=== PATIENT | male | born 1995 | race Caucasian/White ===

== ENCOUNTER 2018-01-21 21:16 | Emergency (ER) | payer OTHER ==
[~2018-01-21] VITALS: Ht 175.3 cm; Wt 72.7 kg
[2018-01-21 21:23] VITALS: TEMP 39.4; Ht 175.3 cm; Wt 72.7 kg
[2018-01-21] MEDS ORDERED: HYDROCODONE/HOMATROPINE SYRUP 5MG/1.5MG 5ML UDP PO STA (21:49)
[2018-01-21] MEDS ORDERED: IBUPROFEN 800 MG TAB PO STA (21:49)
[2018-01-21] MEDS ORDERED: ACETAMINOPHEN 500 MG TAB PO STA (21:49)
[2018-01-21 22:49] LABS: INFLUENZA B ANTIGEN Neg for Influ B (NEG)
--- NOTE | 2018-01-21 22:53 | EMERGENCY ROOM VISIT NOTE ---
ED Visit Note First contact with patient: 21:31 CHIEF COMPLAINT: Fever, runny nose, cough, ear pain and headache 2 days HISTORY OF PRESENT ILLNESS: Patient is an otherwise healthy 22-year-old male who presents emergency department for evaluation of influenza-like symptoms that started 2 evenings ago. He states that he had been out of the theater with some friends and there were lots of people who were coughing, then his symptoms started later that evening with a dry sore throat. He woke up with a fever overnight. He notes cough productive of clear mucus, stuffy, runny nose, frontal headache, back pain, anorexia and difficulty sleeping. He has subjectively felt feverish but has not recorded his temperature with a thermometer. He states that his fever does improve after taking Advil liquid gels. He did not receive a flu shot this season. He denies any skin rashes, no posterior neck pain or stiffness. No vomiting or diarrhea. REVIEW OF SYSTEMS: Review of systems as per HPI. All other systems reviewed were negative. 10 systems reviewed. PMH: Electronic medical records are reviewed and summarized as above/below. See Problem List. SOCIAL HISTORY: Patient is a college student originally from [facility], who lives locally in an apartment with a roommate. Denies tobacco or alcohol use. PHYSICAL EXAM: Vital Signs: Reviewed Nurse's notes. Temperature 39.4C orally. MENTAL STATUS: Patient is an ill although nontoxic-appearing 22-year-old male who is awake and alert and in no acute distress. HEAD: Atraumatic, without temporal or scalp tenderness. EYES: PERRL, EOMI, no discharge or injection. EARS: Tympanic membranes intact, not inflamed, have normal contour. External canals clear. NOSE: Nares patent, turbinates edematous and boggy with clear rhinorrhea. MOUTH: Mucous membranes moist, no lesions, tongue and gums appear normal. THROAT: No pharyngeal injection, exudates, or tonsillar hypertrophy. Airway is patent. NECK: Supple, nontender, no lymphadenopathy. No nuchal rigidity. HEART: Regular rate and rhythm without murmurs, ectopy, gallops, or rubs. LUNGS: Clear to auscultation and breath sounds equal, no wheezes, rales, or rhonchi. SKIN: Normal. NEUROLOGICAL: Sensory and motor functions grossly intact. Normal gait. EMERGENCY DEPARTMENT COURSE: Patient was medicated with Hycodan 10 mL's orally, ibuprofen 600 mg and Tylenol 1 g orally. Rapid strep and influenza swab were obtained. Chest x-ray was performed. Rapid strep was negative, backup cultures are sent and are pending. Influenza swab was positive for influenza A. Chest x-ray was obtained and was unremarkable. The patient was reassessed, and made aware of the results of his laboratory and diagnostic imaging studies. Supportive care measures were discussed. Fever management with alternating Tylenol and ibuprofen was discussed. He was given Hycodan for cough. He was educated on the worrisome signs or symptoms for which he should seek reevaluation. At discharge, nursing staff failed to recheck his temperature although it is noted that his tachycardia has improved. Differential diagnoses includes URI, influenza, mononucleosis, strep versus viral pharyngitis, pneumonia, bronchitis, among others. His physical exam is not consistent with meningitis or encephalitis. Medication reconciliation: I attest that I have personally reviewed the patient' s current medication list. Blood pressure screening: Patient was found to have a slightly elevated blood pressure due to circumstances. I do not believe that the patient requires hypertension monitoring. CHEST 2 VIEWS ROUTINE CLINICAL HISTORY: COUGH AND FEVER COMPARISON STUDY: No previous studies for comparison. FINDINGS: The cardiac and mediastinal contours are normal. There is no evidence of focal pulmonary consolidation. There is no evidence of failure. No pleural effusions are visualized.[ There is an azygos fissure. There are nonspecific increased markings within the right apex medially. IMPRESSION: 1. Nonspecific increased markings in the right apex medially. 2. No evidence of lobar consolidation. Current/Historical Medications Scheduled PRN Hydrocodone W/ Homatropine (Hycodan 5/1.5MG 5 Ml), 10 ML PO Q4H PRN for Cough Allergies Coded Allergies: No Known Allergies (Unverified , 01/21/18) Vital Signs Date Time Temp Pulse Resp B/P (MAP) Pulse Ox O2 Delivery O2 Flow Rate FiO2 01/21/18 23:14 88 20 140/88 99 01/21/18 21:23 39.4 132 18 158/84 97 Room Air Laboratory Results Test 01/21/18 22:10 Influenza Type A Antigen POS for Influ A (NEG) Influenza Type B Antigen Neg for Influ B (NEG) Medications Administered Medications (Trade) Dose Ordered Sig/Corrie Route Start Time Stop Time Status Last Admin Dose Admin Acetaminophen (Tylenol Tab) 1,000 mg NOW STAT PO 01/21/18 21:49 01/21/18 21:51 DC 01/21/18 22:08 1,000 MG Ibuprofen (Motrin Tab) 800 mg NOW STAT PO 01/21/18 21:49 01/21/18 21:51 DC 01/21/18 22:07 800 MG Hydrocodone Bit/ Homatropine Methylb (Hycodan Syrup) 10 ml NOW STAT PO 01/21/18 21:49 01/21/18 21:51 DC 01/21/18 22:07 10 ML Departure Information Impression Primary Impression: Influenza Prescriptions Hydrocodone W/ Homatropine (HYCODAN 5/1.5MG 5 ML) 1 Syp Syp 10 ML PO Q4H Y for Cough, #200 ML For Initial Treatment Prov: Johanne Burr PA 01/21/18 Referrals No Doctor, Assigned (PCP) Patient Instructions My [facility] Additional Instructions DO NOT drive, drink alcohol, operate machinery, or perform dangerous activities today. You were given medications in the ER that can affect your ability to safely function or operate a vehicle. Acetaminophen(Tylenol) may be used for fever or pain. Use 1000mg every six hours as needed. Avoid using more than 3000mg in a 24 hour period. (AND/OR) Ibuprofen(Motrin, Advil) may be used for fever or pain. Use 600mg every six hours as needed. Take with food. Avoid using more than 2400mg in a 24 hour period. Do not use 2400mg per day for more than three consecutive days without physician direction. Prolonged inappropriate use can lead to stomach upset or ulcers. Pseudoephedrine(Sudaphed): 30-60mg every 6 hours as needed for nasal congestion. Do not take this with other stimulant products or supplements. Guaifenesin (Mucinex) : Take 1200 mg every 12 hours as needed for nasal/chest congestion, to help thin secretions. Hycodan cough syrup: use 10 mL's at bedtime only as needed for severe cough. It is best for use at night since it will cause sedation. This is a narcotic medication. Avoid alcohol, operating machinery or dangerous equipment, working on ladders or roofs, DRIVING, or situations where being under the influence may be dangerous. It is recommended to use an [id number] stool softener such as Colace, 100mg twice daily while taking this medication to avoid constipation. Rest and drink plenty of fluids. Controlling your fever with Tylenol and Ibuprofen as above will make you feel better. Wash your hands after nose blowing, sneezing, or coughing. Most germs are spread through contact, therefore improper hygiene may result in your close contacts and loved ones becoming ill just like you. Continue current medications. Return to the ER for severe headache, neck stiffness, chest pain, difficulty breathing, fevers, vomiting, worsening of your condition, or as needed. Follow up with S this week for a recheck of your current condition.
[2018-01-21] MEDS ORDERED: HYDR5SYP11 PO (22:59)
[2018-01-21 23:14] VITALS: BP 140/88; PULSE 88; O2SAT 99
--- NOTE | 2018-01-22 11:48 | Pharmacy Progress Note ---
ED Pharmacist Progress Note Date of Service: Jan 22, 2018. [facility] call from [facility]. The Rx for Hycodan that was e-prescribed earlier by Sandra Burr is not in stock and will not be available until this . The patient stated he did not want to wait until this for the Rx and requested a written Rx to take elsewhere. I asked that [facility] cancel the Rx for Hycodan and send the patient back to the ER. Dr Chaudhry reviewed the case and gave written Rx for Hydodan 10mL PO Q 4 hrs PRN cough, 100mL, no refills. This Rx placed in envelope in central nursing station.
== END 2018-01-21 23:16 | disposition home or self-care (01) ==
LOC: C.EDB 21:17 → C.EDC 23:16
DX: J11.1 Influenza due to unidentified influenza virus with other respiratory manifestations (principal)